=== PATIENT | male | born 1970 | race Caucasian/White ===

== ENCOUNTER 2023-04-30 07:02 | Day surgery (SDC) | payer BC ==
[2023-04-23 14:42] VITALS: BMI 30.4
[2023-04-30] MEDS ORDERED: BUPIVACAINE HCL/PF 2.5 MG/ML - 30 ML VIAL IJ ONE (08:29)
[2023-04-30] MEDS ORDERED: ceFAZolin SODIUM 1 GM VIAL ONE (08:33)
[2023-04-30] MEDS ORDERED: LIDOCAINE HCL/PF 2% SDV 5ML VIAL ONE (08:33)
[2023-04-30] MEDS ORDERED: KETOROLAC TROMETHAMINE 30 MG/1 ML VIAL ONE (08:33)
[2023-04-30] MEDS ORDERED: METOCLOPRAMIDE HCL INJECTION 10 MG/2 ML VIAL ONE (08:33)
[2023-04-30] MEDS ORDERED: DEXAMETHASONE SOD PHOSPHATE 4 MG/1 ML VIAL ONE (08:33)
[2023-04-30] MEDS ORDERED: ONDANSETRON 4 MG/2 ML VIAL ONE (08:33)
[2023-04-30] MEDS ORDERED: SEVOFLURANE 250 ML BTL ONE (08:34)
[2023-04-30] MEDS ORDERED: MIDAZOLAM HCL 2 MG/2 ML SINGLE DOSE VIAL ONE (08:41)
[2023-04-30] MEDS ORDERED: PROPOFOL 20 ML ONE ×2 (09:12→09:28)
[2023-04-30] MEDS ORDERED: ACETAMINOPHEN INJECTION 100 ML IVPB ONE (09:24)
[2023-04-30] MEDS ORDERED: HYDROmorphone HCL/PF 1 MG/ML VIAL ONE ×2 (09:30→11:35)
[2023-04-30] MEDS ORDERED: SUCCINYLCHOLINE CHLORIDE 200 MG/10 ML SYRINGE ONE (09:34)
[2023-04-30] MEDS ORDERED: LIDOCAINE HCL 2% JELLY 11 ML TP ONE (09:35)
[2023-04-30] MEDS ORDERED: SODIUM CHLORIDE 0.9% P/F 10 ML VIAL IJ ONE ×2 (09:35→11:36)
[2023-04-30 10:24] VITALS: RESP 18
[2023-04-30] MEDS ORDERED: oxyCODONE HCL 5 MG TABLET PO PRN (10:31)
[2023-04-30] MEDS ORDERED: ONDANSETRON 4 MG/2 ML VIAL IVPUSH PRN (10:31)
[2023-04-30] MEDS ORDERED: LACTATED RINGERS SOLUTION 1,000 ML IV SCH (10:45)
[2023-04-30 11:27] VITALS: TEMP 97.5
[2023-04-30 11:54] VITALS: BP 128/78; PULSE 77
== END 2023-04-30 11:55 | disposition home or self-care (01) ==
LOC: FASU 07:02
PROVIDERS: ATTEND Orthopaedic Surgery
PROC: 0SBC4ZZ Excision of Right Knee Joint, Percutaneous Endoscopic Approach (ICD-10-PCS; 2023-04-30)
PROC: 0SBC4ZZ Excision of Right Knee Joint, Percutaneous Endoscopic Approach (ICD-10-PCS; 2023-04-30)
PROC: 0SBC4ZZ Excision of Right Knee Joint, Percutaneous Endoscopic Approach (ICD-10-PCS; 2023-04-30)
PROC: 0SBC4ZZ Excision of Right Knee Joint, Percutaneous Endoscopic Approach (ICD-10-PCS; principal; 2023-04-30 09:25)
DX: S83.241A Other tear of medial meniscus, current injury, right knee, initial encounter (principal); S83.281A Other tear of lateral meniscus, current injury, right knee, initial encounter; M65.861 Other synovitis and tenosynovitis, right lower leg; S83.8X1A Sprain of other specified parts of right knee, initial encounter; X58.XXXA Exposure to other specified factors, initial encounter; Y93.9 Activity, unspecified; Y92.9 Unspecified place or not applicable
CPT/HCPCS: 94760; J0131